=== PATIENT | male | born 1985 | race Caucasian/White ===

== ENCOUNTER 2022-09-02 01:24 | Day surgery (SDC) | payer OTHER, SELFPAY ==
[2022-08-27 11:28] VITALS: BMI 25.7
--- NOTE | 2022-08-27 11:33 | PC.NURSE ---
Report to the Outpatient Waiting Room, entrance under the green pavilion located off [facility], at time 0600 on date 09/02/22. OR Time: 0730. Time changes happen often and if your time is changed the preop area will call you the afternoon before. - You and your visitor will be asked to self-screen and do not enter if you have any COVID symptoms. - We encourage only one visitor and NO visitors under age 16 are allowed at this time. Your visitor will receive communication by the phone number that is given day of service. - The patient visitor is requested to social distance or may leave the building when not with patient due to restrictions. - A mask is required within the hospital. Patients may have clear liquids (water, carbonated beverages, clear teas, apple juice) until 3 hours prior to surgery with a maximum of 20 ounces. - No food from midnight until time of surgery Take the following medications with a SIP of water the morning of surgery: LYRICA, TYLENOL IF NEEDED Medications to discontinue per physician: N/A Date to take last dose: N/A Please no make-up, nail telugu, hairspray, perfume, deodorant, or body powder the day of surgery. No jewelry (including any body piercings) or valuables the day of surgery, leave them at home. Please take a shower or bath the night before, or the morning of, surgery with an antibacterial soap. Wear comfortable, loose fitting clothing. - Jewelry must be removed prior to entering the operating room. Rings and piercings that are not removed may be cut off. - The hospital will not accept responsibility for valuables. - Please leave all valuables, including medications, at home the day of surgery. If you are going home after surgery, a licensed spike driver must drive you home. - NO public transportation without another adult. - We recommend that an adult stay with you for 24 hours following discharge. - We also recommend that you do not drive, make important decision, drink alcoholic beverages, or take any drugs that were not prescribed by your health care provider for at least 24 hours after your discharge time. Follow any additional instructions given to you from your surgeon. If you or anyone in your household have experienced Covid symptoms in the past week, please notify your surgeon or the nurse liaison at the phone number below for possible testing. Telephone instructions given to PT - WILLIAM CARLOS and asked if any additional questions and then verbalized understanding. Patient advised to call surgeon office or pre surgery nurse liaison [phone] if any additional questions.
--- NOTE | 2022-09-01 13:36 | WPDANESEPPF ---
Anes - Initial Pre Proc Eval Procedure: Operation Date: 09/02/22 07:30 Proposed Procedures p Right L 4-5 Microscopic Lumbar Discectomy - Madhav Alexander MD Date/Time: 09/01/22 13:36 Surgeon: Madhav Alexander MD Pre Op Diagnosis: Lumbar Disc Herniation Radiculopathy Patient Data Age: 37 Gender: M Height: 1.85 m Weight: 88.45 kg Allergies Allergy/AdvReac Type Severity Reaction Status Date / Time No Known Allergies Allergy Verified 09/02/22 06:22 Home Medications Medication Instructions Recorded Confirmed Type acetaminophen 500 mg tablet 1,000 mg PO BID 08/27/22 09/02/22 History pregabalin 75 mg capsule 75 mg PO BID 08/27/22 09/02/22 History Patient hx anesthesia problems: none Family hx anesthesia problems: none Results Review: All pre-operative results and documents have been reviewed as part of the pre-operative evaluation. [facility] Past Medical History Medical History (Updated 09/02/22 @ 06:50 by Daniel Arevalo DO) Herniated disc Social History Social History Smoking status: Never smoker Alcohol intake: never Substance use: never Substance use type: does not use Living arrangements: with family Spiritual care concerns: No Anes - Eval Final PreProcedure Day of Procedure 09/01/22 13:36 Patient weight: overweight Heart: regular rate and rhythm Lungs: clear to auscultation Airway: Mallampati scale class II Neurological: alert and oriented Last oral intake: >/= 8 hours ASA classification: II Emergent: no Anesthetic plan: proceed Anesthesia type and monitoring: general ETT and standard monitoring Results Review: All pre-operative results and documents have been reviewed as part of the pre-operative evaluation. Informed Consent: The patient's anesthetic plan and its attendant risks and benefits were discussed with the patient/family/POA. Questions were solicited and answers provided to the satisfaction of the patient/family/POA.
[2022-09-02] VITALS (12 sets, daily range): BP systolic 98–122; BP diastolic 63–89; PULSE 46–69; RESP 12–16; TEMP 36.2–36.3; O2SAT 98–100
--- NOTE | ~2022-09-02 | XR_ITS ---
EXAMINATION: XR fluoroscopy no charge DATE: 09/02/2022 08:39 INDICATION: Lumbar discectomy. TECHNIQUE: 2 intraoperative fluoroscopic views of lumbar spine were obtained. I was not present. Fluo roscopy exposure time was 3 seconds. COMPARISON: None. FINDINGS: Two lateral views of the lumbar spine demonstrate instruments overlying the posterior eleme nts at L4-L5. IMPRESSION: 1. Lumbar spine surgery. Reviewed, dictated and finalized at location B. IMPRESSION: 1. Lumbar spine surgery.
[2022-09-02] MEDS: LACTATED RINGERS 1,000 ML 30 ML IV CONT ×2 (06:34→08:52)
--- NOTE | 2022-09-02 07:33 | PM.IMHP ---
H&P: HPI History of Present Illness Date/Time: 09/02/22 07:33 Chief Complaint: Back and right leg pain Narrative: Tank 37-year-old gentleman with the cute onset of right lower extremity discomfort related to an L4-5 disc herniation presents for microscopic lumbar diskectomy. He is not different than when we saw him last. He is not having any specific muscle group weakness. He has dermatomal numbness. He is not having bowel or bladder difficulty. Review of Systems Review of Systems: Patient denies shortness of breath, cough, fever, chills, nausea, vomiting, weight loss, weight gain, chest pain, dysuria. He has back and leg pain as above. His review of systems is otherwise negative on 12 systems except as noted elsewhere. [facility] Past Medical History Medical History (Updated 09/02/22 @ 07:35 by Madhav Alexander MD) Herniated disc Social History Social History Smoking status: Never smoker Alcohol intake: never Substance use: never Substance use type: does not use Living arrangements: with family Spiritual care concerns: No Meds Home Medications and Allergies Home Medications Medication Instructions Recorded Confirmed Type acetaminophen 500 mg tablet 1,000 mg PO BID 08/27/22 09/02/22 History pregabalin 75 mg capsule 75 mg PO BID 08/27/22 09/02/22 History Allergies Allergy/AdvReac Type Severity Reaction Status Date / Time No Known Allergies Allergy Verified 09/02/22 06:22 Vital Signs Vital Signs - 24 hr 09/02/22 06:04 Temperature 97.3 F L Pulse Rate 64 Respiratory Rate 16 Blood Pressure 113/65 Pulse Oximetry 100 Oxygen Delivery Room Air Exam Neuro: Other: Patient is a normally developed, normal appearing male supine on the hospital bed in no acute distress. He is awake, alert, oriented x3, with good fund of knowledge, recall events and fluent speech. His face is symmetrical, tongue is midline, his pupils are equal reactive and his extraocular movements are intact. Strength is 5/5 in all muscle groups of bilateral lower extremities to direct confrontation. Sensation is intact to light touch throughout the lower extremities with slightly decreased sensation in the dorsum of the foot and anterior lateral leonardo on the right. Clear to auscultation Regular rate and rhythm Assessment and Plan Assessment and plan (1) Lumbar disc herniation: Code(s): M51.26 - Other intervertebral disc displacement, lumbar region Status: Acute Plan Mikal is a 37-year-old gentleman with back and leg pain related to a right L4-5 herniated nucleus pulposus who presents now for microscopic lumbar diskectomy. I described to him again that operation, its risks, potential benefits, the operative and postoperative course in detail and answered all his questions personally. He indicates understanding and elects to proceed with that operation.
--- NOTE | 2022-09-02 07:36 | WPDHPUPDATE1 ---
History and Physical Update Update Date/Time: 09/02/22 07:36 History and Physical has been reviewed, including an updated exam of the patient. There are NO changes in the patient's condition. Risks, benefits, and alternatives have been discussed and questions answered. Patient agrees to proceed with procedure.
[2022-09-02] MEDS: ceFAZolin 2 GM/D5W 50 ML 2 GM/50 ML BAG IVPB (07:40)
[2022-09-02] MEDS: BUPIVACAINE/EPINEPHRINE 0.25% 50 ML VIAL INFILTRATE (08:16)
--- NOTE | 2022-09-02 08:56 | P.OP_ITS ---
Procedure Note - Detailed Date of Procedure 09/02/22 Pre-op Diagnosis Lumbar Disc Herniation Radiculopathy Post-op Diagnosis Same Procedure Performed Right L4-5 microscopic lumbar diskectomy Surgeon Madhav Alexander MD Speech And Language Specialist Princess Anesthesia General Indications Tank 37-year-old male with back and leg pain related to the above pathology presents for a right L4-5 microscopic diskectomy. Description of Procedure Mikal was brought to the operating room in the supine position, was sedated, intubated and placed under general anesthesia in routine fashion. He was then turned into the prone position on a Neo frame. The of operation on his back was examined, marked for incision, prepped and draped in routine sterile fashion. Incision was marked over the L4-L5 spinous processes in the midline. This area was injected with 0.5% lidocaine with [id number] epinephrine. Intravenous antibiotics given prior to incision. Incision was made with a 10 blade scalpel down to the lumbodorsal fascia. A subperiosteal dissection of the muscle and soft tissue away from spinous process lamina on the right at L4-5 was performed with a subperiosteal elevator and Bovie cautery. A verifying x-rays obtained to verify the level of operation. A Midas King drill was used to perform a hemilaminectomy and medial facetectomy on the right at L4-5. Under microscopy the yellow ligament was lifted and removed piecemeal using Kerrison punches. Plane was then dissected medial to this thecal sac down to the ventral epidural space. A nerve root retractor was used to retract the dura and nerve root medially exposing subligamentous disc her niation below. The ligament was entered using 11 blade scalpel. An Kaci curette, curved curette and Condon rongeur were used to push free and removed fragments of herniated disc from beneath the nerve. These maneuvers were performed until a dental instrument could be placed in the ventral epidural space to confirm lack of compression. The wound was then copiously irrigated with bacitracin irrigation all bleeding stopped with bipolar and Bovie cautery and Gelfoam thrombin powder. The wound was then closed in layered fashion with 2-0 Vicryl interrupted sutures in the lumbodorsal fascia and Jimmy's layer. 3-0 Vicryl buried interrupted sutures were placed in the dermis and the skin was closed with a running 4-0 Monocryl subcuticular stitch and dressed with Dermabond and a Telfa and Tegaderm dressing. The patient was then allowed to wake up in the operating room and was taken to the recovery room in stable condition. There were no immediate complications this operation. All counts were reported correct in the case. Blood loss was 10 cc. The patient was neurologically at his baseline postoperatively. Estimated Blood Loss 10 IV Fluids 1,000 Complications None Condition Stable Disposition PACU
[2022-09-02] MEDS: fentaNYL CITRATE INJ (*CRX) 100 MCG/2 ML VIAL 25 MCG IV PUSH ×4 (09:22→09:41)
[2022-09-02] MEDS: oxyCODONE HCL (*CRX) 5 MG TAB IR PO (10:27)
[2022-09-02] MEDS: HYDROmorphone HCL INJ (*CRX) 1 MG/ML SYR 0.5 MG IV PUSH (11:24)
== END 2022-09-02 11:46 | disposition home or self-care (01) ==
PROVIDERS: PCP Family Medicine; Visit Provider Neurological Surgery
PROC: (CPT 63030; principal; 2022-09-02 07:30)
DX: M51.16 Intervertebral disc disorders with radiculopathy, lumbar region (principal)
CPT/HCPCS: 63030; 36415; 86850; 86900; 86901; 99199; A9270; J0131; J0690; J1100; J1170; J2250; J2405; J2704; J2710; J3010; J7120